=== PATIENT | female | born 1945 | race Caucasian/White ===

== ENCOUNTER → 2020-04-21 | Outpatient (CLI) | payer MEDICARE, OTHER ==
[~2020-04-21] MED LIST: B-125000 MCG; BENADRYL25 MG; CELE200 PO; Co Q-10300 MG PO; DHEA 10 MG TAB1 EACH PO; DHEA PO; LACT10SY PO; MEGA MULTI FOR1 EACH PO; MIRT15 PO; OMEP40CA12 PO; Omega 3 Fish O1 EACH PO; PROBIOTIC1 EAC1; SERT100 PO; SIME80CH PO; Synthroid112 MCG PO; THYROID PO; TOCO400 PO; VITAMIN D 3 PO; VITAMIN D35000 UNIT PO; [UNRECOGNIZED DRUG - OTHER] PO
== END | disposition home or self-care (01) ==
LOC: LAB SHORT 15:31 → LAB 15:31
DX: R30.0 Dysuria (principal)
CPT/HCPCS: 87077; 87086; 87186

== ENCOUNTER 2024-08-11 08:17 | Day surgery (SDC) | payer OTHER ==
[2024-08-11] VITALS (13 sets, daily range): BP systolic 112–152; BP diastolic 59–88
[~2024-08-11] VITALS: Ht 157.5 cm; Wt 88.5 kg
[~2024-08-11 08:17] MED LIST changes: +B-12500 MC1 PO; -B-125000 MCG; +EUTHYROX125 MC1 PO; +IRBESARTAN75 M3 PO; +MELO7.5; +NEURONTIN300 MG PO; +TRAZ50 PO; +XARELTO15 MG PO; +XARELTO20 MG PO; +propofoL 100 ML IV ONE
[2024-08-11] MEDS ORDERED: CeFAZolin Sodium 2,000 MG in NS 100 ML IV SCH ×2 (09:05→19:00)
[2024-08-11] MEDS ORDERED: OxyCODONE HCL 10 MG TABCR PO SCH (09:05)
[2024-08-11] MEDS ORDERED: Ropivacaine 0.5% HCl/Pf 123.125 MG,EPINEPHrine HCL 0.25 MG,Ketorolac Tromethamine 15 MG... INFIL SCH (09:05)
[2024-08-11] MEDS ORDERED: Tranexamic Acid 1,000 MG in NS 100 ML IV SCH (09:05)
[2024-08-11] MEDS ORDERED: Chlorhexidine Mouth Care 15 ML UDC MT SCH (09:05)
[2024-08-11] MEDS ORDERED: Acetaminophen 500 MG Tab PO SCH ×2 (09:05→16:00)
[2024-08-11] MEDS ORDERED: Lactated Ringer's 1,000 ML IV SCH ×2 (09:05→09:35)
[2024-08-11] MEDS ORDERED: Bisacodyl 10 MG Supp PR PRN (09:30)
[2024-08-11] MEDS ORDERED: HYDROmorphone HCl/Pf 1MG SYR IV PRN (09:35)
[2024-08-11] MEDS ORDERED: ACET500 (09:35)
[2024-08-11] MEDS ORDERED: DiphenhydrAMINE HCL 25 MG Cap PO PRN (09:35)
[2024-08-11] MEDS ORDERED: FLU VACC TS2024-25(6MOS UP)/PF 45 MCG/0.5 ML SYRINGE IM SCH (09:35)
--- NOTE | 2024-08-11 09:36 | NUR ---
Ambulatory in Day Surgery Patient confirms NPO status and agrees with scheduled surgery. Pre-Op teaching done. Pt verbalizes understanding. History, Chart, Medications and Allergies reviewed before start of procedure. Patient reports completing Chlorhexadine shower X2 prior to admission to hospital. PT HAS SMALL OLD SCAB ON LOWER
--- NOTE | 2024-08-11 09:37 | NUR ---
LEFT LOWER JACKSON SKIN INTACT. RAJESH WOOD LOOKING AT WOUND. OK TO PROCEED W/SURGERY. PT REQUESTING TO GO HOME THIS EVENING
[2024-08-11] MEDS ORDERED: OxyCODONE HCL 5 MG TAB PO PRN ×2 (09:40)
[2024-08-11] MEDS ORDERED: Promethazine HCl 25 MG Tab PO PRN (09:40)
[2024-08-11] MEDS ORDERED: Magnesium Hydroxide Conc 10 ML UDC PO PRN (09:40)
[2024-08-11] MEDS ORDERED: Metoclopramide HCl 5MG / ML 2ML Vial IV PRN (09:40)
[2024-08-11] MEDS ORDERED: Ondansetron HCl 2 MG / ML 2ML Vial IV PRN (09:40)
[2024-08-11] MEDS ORDERED: CeFAZolin Sodium 2,000 MG VIAL ONE (09:59)
[2024-08-11] MEDS ORDERED: ePHEDrine Sulfate 50 MG/ML 1ML Injection ONE (11:27)
[2024-08-11] MEDS ORDERED: Dexamethasone Sod Phos 10 MG/ML 1ML VIAL ONE (11:44)
[2024-08-11] MEDS ORDERED: FentaNYL Citrate 50 MCG/ML 2 ML Injection ONE (11:51)
[2024-08-11] MEDS ORDERED: HYDROmorphone HCl/Pf 1MG SYR ONE (11:56)
[2024-08-11] MEDS ORDERED: HydrALAZINE HCl 20 MG / ML 1ML Vial ONE (11:58)
[2024-08-11] MEDS ORDERED: Ketorolac Tromethamine 15mg Vial IV SCH (12:00)
[2024-08-11] MEDS ORDERED: Ondansetron HCl 2 MG / ML 2ML Vial ONE (12:38)
[2024-08-11] MEDS ORDERED: Sugammadex Sodium 200 MG/2ML SDV (100 MG/ML) ONE (12:42)
--- NOTE | 2024-08-11 19:07 | NUR ---
SHIFT SUMMARY POD0 L TKA, A/OX4, VSS, TOLERATING PO, PAIN WELL MANAGED, WORKED WITH THERAPY WITH LIMITED RESULTS R/T WEAKNESS, PT RECOMMENDING USING BSC TONIGHT. PATIENT REPORTS SHE NORMALLY TAKES 2 STOOL SOFTENERS BID AND STATES SHE HAS A LOT OF TROUBLE WITH CONSTIPATION. NO ACUTE EVENTS THIS SHIFT, CALL LIGHT IN REACH.
[2024-08-11] MEDS ORDERED: Gabapentin 300 MG Cap PO SCH (21:00)
[2024-08-11] MEDS ORDERED: Docusate Sodium 100 MG Cap PO SCH ×2 (21:00)
[2024-08-12 04:15] VITALS: BP 111/58
[2024-08-12 05:04] LABS: BASOPHILS ABSOLUTE AUTO 0.03 K/mm3 (0.00-0.23); BASOPHILS PERCENT AUTO 0 % (0-2); EOSINOPHILS ABSOLUTE AUTO 0.07 K/mm3 (0.00-0.68); EOSINOPHILS PERCENT AUTO 1 % (0-6); Hematocrit 34.9 % (33.0-51.0); Hemoglobin 11.3 g/dL (11.5-16.0); IMMATURE GRAN ABSOLUTE AUTO 0.03 K/mm3 (0.00-0.10); IMMATURE GRAN PERCENT AUTO 0 % (0-1); LYMPHOCYTES ABSOLUTE AUTO 1.73 K/mm3 (0.84-5.20); LYMPHOCYTES PERCENT AUTO 17 % (21-46); MONOCYTES ABSOLUTE AUTO 1.09 K/mm3 (0.16-1.47); MONOCYTES PERCENT AUTO 11 % (4-13); Mean Corpuscular HGB 30.3 pg (26.0-34.0); Mean Corpuscular HGB Conc 32.4 g/dL (31.5-36.5); Mean Corpuscular Volume 94 fL (80-100); Mean Platelet Volume 10.5 fL (9.1-12.4); NEUTROPHILS ABSOLUTE AUTO 7.31 K/mm3 (1.96-9.15); NEUTROPHILS PERCENT AUTO 71 % (41-73); Platelet Count 231 K/mm3 (150-400); RDW Coefficient Variation 13.5 % (11.7-14.2); RDW Standard Deviation 46.1 fL (35.1-46.3); Red Blood Cell Count 3.73 M/mm3 (3.80-5.20); White Blood Cell Count 10.26 K/mm3 (4.00-11.30)
[2024-08-12 05:36] LABS: Bun/Creatinine Ratio 22.5 (12.0-20.0); Calcium, Blood 9.2 mg/dL (8.5-10.1); Creatinine, Blood 1.02 mg/dL (0.40-1.00); Potassium, Blood 3.7 mmol/L (3.5-5.5)
--- NOTE | 2024-08-12 05:57 | NUR ---
SHIFT SUMMARY POD 1 L TKA. NO ACUTE CHANGES. VSS. TOLERATING ORALS. VOIDING. AMBULATES USING FWW c GB & 1 PERSON ASSIST. PT REPORTS PAIN TOLERABLE, MEDICATED PER EMAR, POLAR PACK IN USE. AQUACEL DRESSING C/D/I. ANTICIPATED TO WORK c PHYSCIAL THERAPY THEN DISCHARGE HOME. CALL LIGHT IN REACH, RESTING IN CHAIR, WILL REPORT TO DAY RN.
[2024-08-12 07:27] VITALS: BP 119/61
[2024-08-12] MEDS ORDERED: Cyanocobalamin 500 MCG Tab PO SCH (09:00)
[2024-08-12] MEDS ORDERED: Sertraline HCl 100 MG Tab PO SCH (09:00)
[2024-08-12] MEDS ORDERED: Rivaroxaban 10 MG Tab PO SCH (09:00)
[2024-08-12] MEDS ORDERED: AVAPRO75 MG PO (09:23)
[2024-08-12] MEDS ORDERED: EUTHYROX125 MCG PO (09:24)
[2024-08-12] MEDS ORDERED: EUTHYROX125 MCG (09:24)
--- NOTE | 2024-08-12 09:50 | NUR ---
DISCHARGE PT HAS WORKED w/ THERAPY. PAIN WELL CONTROLLED. EATING, DRINKING, & VOIDING WELL. [facility] & TAVON SANTOS SENT w/ PT. ESCORTED OUT VIA W/C.
== END 2024-08-12 09:52 | disposition home or self-care (01) ==
LOC: ORSCMMR 08:17 → ORD 10:00 → ORSCMMR 13:40 → SURS 13:40 → ORSCMMR 08-12 09:52
PROVIDERS: Orthopaedic Surgery
DX: M17.12 Unilateral primary osteoarthritis, left knee (principal); I10 Essential (primary) hypertension; Z79.899 Other long term (current) drug therapy; Z85.850 Personal history of malignant neoplasm of thyroid; Z86.711 Personal history of pulmonary embolism; Z79.01 Long term (current) use of anticoagulants; Z96.651 Presence of right artificial knee joint
CPT/HCPCS: 36415; 73560-LT; 80048; 85025; 97110; 97116; 97161; 97530; A9270; C1713; C1776; J0171; J0360; J0690; J0735; J1100; J1171; J1885; J2405; J2704; J2795; J3010; J7120

== ENCOUNTER → 2024-10-26 | Outpatient (CLI) | payer OTHER ==
[~2024-10-26] MED LIST changes: +ACET500; +AVAPRO75 MG PO; +EUTHYROX125 MCG; +EUTHYROX125 MCG PO; -propofoL 100 ML IV ONE
[2024-10-26 16:54] LABS: Influenza A, PCR NEGATIVE (NEGATIVE); Influenza B, PCR NEGATIVE (NEGATIVE); Resp Syncytial Virus, PCR NEGATIVE (NEGATIVE); SARS-Cov-2 (COVID-19) PCR, MMC NEGATIVE (NEGATIVE)
== END ==
LOC: LAB 11:36 → LAB SHORT 11:36
PROVIDERS: Family Medicine
DX: N39.0 Urinary tract infection, site not specified (principal)
CPT/HCPCS: 0241U; 87086